=== PATIENT | female | born 1960 | race Caucasian/White ===

== ENCOUNTER 2025-06-02 11:32 | Outpatient (CLI) | payer BC, SELFPAY ==
--- NOTE | 2025-06-23 12:10 | W.PM.SLEEP ---
Sleep Study Details Details Interpreting Provider: Lalitha Date of Sleep Study: 06/02/25 Sleep Study Details: STUDY TYPE:? Home unattended ? BMI:? 33.44 ORDERING PROVIDER:? Laltiha INDICATION:? Concern for sleep apnea ? SLEEP SUMMARY:? 449 minutes monitored RESPIRATORY SUMMARY:? AHI 17.8 rule 1A, 10.2 per CMS guideline Low oxygen 82 7.1% of study oxygen less than 90% Snoring 84.8% PERIODIC LIMB MOVEMENTS OF SLEEP:? Not recorded CARDIAC:? Range 52-92, mean 64.8 beats per minute IMPRESSION:? Moderate obstructive sleep apnea with significant desaturations RECOMMENDATION: Treatment options include CPAP or dental appliance. Weight loss may be of some benefit as well.
== END 2025-06-02 11:33 | disposition home or self-care (01) ==
LOC: SLEEP 11:33
PROVIDERS: PCP Family Medicine; Visit Provider Otolaryngology
DX: G47.33 Obstructive sleep apnea (adult) (pediatric) (principal)
CPT/HCPCS: 95806